=== PATIENT | male | born 1955 | race Caucasian/White ===

== ENCOUNTER 2017-12-08 05:31 | Inpatient (IN) | payer OTHER ==
[2017-11-26 08:38] LABS: HEMATOCRIT 43.1 % (42.0-52.0); HEMOGLOBIN 15.1 gm/dL (14.0-18.0); MCH 33.6 pg (26.0-34.0); RBC 4.49 mil/uL (4.50-6.00); RDW 12.9 % (10.5-14.5); WBC 8.1 thou/uL (4.0-11.0)
[2017-11-26 08:42] LABS: URINE BILIRUBIN NEGATIVE (Negative); URINE BLOOD NEGATIVE (Negative); URINE CLARITY CLEAR; URINE COLOR YELLOW; URINE GLUCOSE-RANDOM* NEGATIVE (Negative); URINE KETONES TRACE (Negative); URINE LEUKOCYTES-REFLEX NEGATIVE (Negative); URINE NITRITE-REFLEX NEGATIVE (Negative); URINE PROTEIN (DIPSTICK) NEGATIVE (Negative); URINE UROBILINOGEN 0.2 E.U./dl (0.2-1.0)
[2017-11-26 08:45] LABS: INR 1.1; PROTIME 10.4 Seconds (9.3-11.4)
[2017-11-26 08:45] LABS: ALBUMIN 4.1 g/dL (3.4-5.0); CALCIUM 10.4 mg/dL (8.5-10.1); CREATININE 0.9 mg/dL (0.7-1.3); POTASSIUM 4.2 mmol/L (3.5-5.1)
[~2017-12-08] VITALS: Ht 177.8 cm; Wt 136.1 kg
--- NOTE | ~2017-12-08 | D ---
[facility] [place] [address] DISCHARGE SUMMARY Name: KRISTY MENCHACA Cinthia Room #: 402-P [facility] IN ..#: [id number] Admission: 12/08/17 Attend Phys: Inocente Vásquez MD Discharge: 12/10/17 Date of : 59 Report #: [id number] THIS REPORT FOR: //name// CC: Inocente Bradley DATE OF SERVICE: 12/10/2017 FINAL DIAGNOSIS: End-stage degenerative arthritis, left hip. OPERATIONS AND PROCEDURES: Left total hip arthroplasty. HISTORY OF PRESENT ILLNESS: This stocky, but otherwise well appearing 62-year-old gentleman presents with progressive left hip pain. Clinical and radiographic findings revealed severe degenerative arthritis. He is having difficulty with ambulation and independent activity. He has elected to go ahead with left total hip arthroplasty. HOSPITAL COURSE: The patient was admitted and taken to the operating room on 12/08. He underwent left total hip arthroplasty, which he tolerated well. Postoperatively, his course was largely unremarkable. His Hemovac drain was removed at the first postoperative day. He was able to advance from IV analgesics to oral analgesics. He was able to resume a regular diet. He resumed his preoperative routine medications and was able to manage on oral Percocet for pain control. He was also started on Xarelto for anticoagulation prophylaxis. He made good progress with therapy advancing to independent ambulation and stairs. He seems to be safe and independent and ready for discharge on [address] 10[address]. He is instructed to continue a gentle moderate activity at home. I have asked him to call me should there be any problems or questions. We will plan to communicate next week and then see him in the office the following week for followup and suture removal. DISCHARGE MEDICATIONS: Include verapamil 180 mg 2 tablets daily, Colace 100 mg b.i.d., Lipitor 10 mg daily, lisinopril/hydrochlorothiazide 20/12.5 one daily, oxycodone 10 mg q.4 hours p.r.n. for pain, and Xarelto 10 mg daily. He will call me if there are any problems or questions and we will otherwise visit again in 2 weeks. <ELECTRONICALLY SIGNED> By: Inocente Vásquez MD 12/11/17 [id number] Inocente Vásquez MD /nt
--- NOTE | ~2017-12-08 | O ---
[facility] [place] [address] OPERATIVE REPORT Name: KRISTY MENCHACA Room #: 402-P [facility] IN M.R.#: [id number] Admission: 12/08/17 Attend Phys: Inocente Vásquez MD Discharge: Date of : 59 Report #: [id number] THIS REPORT FOR: //name// CC: Inocente Bradley DATE OF SERVICE: 12/08/2017 PREOPERATIVE DIAGNOSIS: End-stage degenerative arthritis, left hip. POSTOPERATIVE DIAGNOSIS: End-stage degenerative arthritis, left hip. PROCEDURE: Left total hip arthroplasty. SURGEON: Inocente Vásquez MD INDICATIONS: This 62-year-old gentleman presents with progressive left hip pain. He has had similar problems on the right hip, benefited with right total hip arthroplasty in the past. Now, he has limited range of motion and significant crepitus and pain involving the left hip. We have elected to go ahead with left total hip arthroplasty. DESCRIPTION OF PROCEDURE: The patient was taken to the operating room where he was placed under general anesthesia. Prophylactic intravenous antibiotics were administered. He was turned to the right lateral decubitus position. The right hip and thigh were meticulously prepped and draped. A slightly curving posterolateral skin incision was made centered over the greater trochanter. This was carried through fascia exposing the posterior aspect of the hip joint. The short external rotators and capsule were taken down and tagged with several #1 Tevdek sutures. The hip was dislocated and marked degenerative change on both the acetabulum and femoral head were noted. A femoral neck osteotomy was performed and the head was removed. The femoral canal was then opened using reamers and hand broaches. The Witt and Nephew hip system was utilized. The size 14 Synergy porous stem seemed to fit most appropriately. The calcar was trimmed down to an appropriate level. The trial stem was removed and attention was directed to the acetabulum. The acetabulum was sequentially reamed and seemed to be best suited for a size 56 fenestrated cup. The StikTite coated shell was selected using the size 56 mm outside diameter size. This was impacted into the prepared acetabulum, positioning this in alignment with his true acetabulum and about 45 degrees off of vertical and about 20 degrees of anteversion. It seated nicely and appeared to be secure. In addition, 2 cancellous screws were placed through the upper aspect of the shell engaging periacetabular bone with good purchase. This resulted in excellent overall stability. The polyethylene liner was then inserted using the 40 mm liner with a 20-degree elevated rim, which was placed at about the 10 o'clock posterior position. This was snapped into position and seated nicely and appeared to be [address] [address] OPERATIVE REPORT Name: KRISTY MENCHACA Room #: 402-P [facility] IN M.R.#: [id number] Admission: 12/08/17 Attend Phys: Inocente Vásquez MD Discharge: Date of : 59 Report #: [id number] secure. The size 14 femoral stem was then reinserted and a trial reduction was performed. The hip seemed to be best suited for a +0 neck length and a 40 mm head size. This resulted in satisfactory leg length, alignment and stability. The trial stem was removed and the permanent Witt and Nephew size 14 Synergy porous high offset femoral component was then applied. This was inserted into the canal and positioned about 20 degrees of anteversion. It seated nicely and appeared to be secure. A +0 neck length and a 40 mm head size was selected. This was impacted onto the Peng taper using a cobalt chrome style head. This seated nicely and appeared to be secure. The hip was reduced. Alignment, range of motion, stability and leg length appeared to be satisfactory. The wound was then copiously irrigated. Good hemostasis was established. The capsule and short external rotators were repaired back to bone using the #1 Tevdek sutures passed through small drill holes in the posterior aspect of greater trochanter. This added to overall hip stability. A single Hemovac was then left in the wound exiting through a separate stab incision. The fascia was then closed with multiple #1 Vicryl sutures. The subcutaneous tissues were closed with 0 Monocryl. The skin was closed with skin mario. A sterile dressing was applied. The patient was awakened and returned to recovery room in good condition. <ELECTRONICALLY SIGNED> By: Inocente Vásquez MD 12/09/17 0810 [id number] Inocente Vásquez MD /nt
--- NOTE | ~2017-12-08 | EKG ---
[place] [address] [facility] [place] [address] ELECTROCARDIOGRAM REPORT Name: PITO MENCHACAMONALISA Vicente Room #: PRE IN [facility]#: [id number] Admission: Attend Phys: Inocente Vásquez MD Discharge: Date of : 59 Report #: [id number] THIS REPORT FOR: //name// [facility] Test Date: 2017-11-26 Test Time: 08:29:10 Pat Name: KRISTY MENCHACA Department: Room: Gender: Moving Consultant: sarbjit : 1955 Requested By: Inocente Vásquez Order Number: [id number] MD: Nabeel Alatorre Measurements Intervals [place] Rate: 73 P: 49 NH: 203 QRS: 1 QRSD: 92 T: 3 QT: 392 QTc: 432 Interpretive Statements Sinus rhythm Low voltage, precordial leads Abnormal R-wave progression, early transition Compared to ECG 05/14/2013 23:46:19 Low QRS voltage now present Ventricular premature complex(es) no longer present Electronically Signed On 11-28-2017 7:42:06 [employer] by Nabeel Alatorre [email or web address] <ELECTRONICALLY SIGNED> By: Nabeel Alatorre MD, [facility] 11/28/17 0742 8 Nabeel Alatorre MD, [facility] /EPI
[~2017-12-08 05:31] MED LIST: ADVIL100 M2 PO; BENTYL 10 MG CA10 M1 PO; CENTRUM SILVER1 EAC4 PO; COLACE100 MG PO; COUMADIN 2 MG TA2 M1 PO; IBUPROFEN 200200 M1 PO; IBUPROFEN 600600 M1 PO; LIPITOR10 MG PO; LISINOPRIL10 MG PO; LORCET PLUS 7.1 EACH PO; LOVENOX40 MG/0.4 SQ; NORCO 5-325 TA1 EACH PO; NUCYNTA ER150 MG PO; PERCOCET 10-321 EACH PO; SIMVASTATIN20 MG PO; TYLENOL325 MG PO; ULORIC40 MG PO; VERAPAMIL ER180 M1 PO; ZESTORETIC 20-1 EAC3 PO
[2017-12-08 06:51] VITALS: BP 151/82
[2017-12-08 11:30] VITALS: BP 128/57
[2017-12-08 16:00] VITALS: BP 132/65
[2017-12-08 20:21] VITALS: BP 143/67
[2017-12-09 04:54] VITALS: BP 137/78
[2017-12-09 06:48] LABS: ABSOLUTE NEUTROPHILS 9.7 thou/uL (1.4-8.2); BASOPHILS 0.2 % (0.0-2.0); HEMATOCRIT 35.4 % (42.0-52.0); HEMOGLOBIN 12.1 gm/dL (14.0-18.0); LYMPHOCYTES 6.2 % (24.0-44.0); MCH 33.5 pg (26.0-34.0); MCHC 34.2 g/dL (28.0-37.0); MCV 97.9 fL (80.0-100.0); PLATELET COUNT 196 thou/uL (150-400); POLYS 84.6 % (36.0-66.0); RBC 3.62 mil/uL (4.50-6.00); RDW 13.4 % (10.5-14.5); WBC 11.5 thou/uL (4.0-11.0)
[2017-12-09 06:55] LABS: CALCIUM 8.6 mg/dL (8.5-10.1); MAGNESIUM 1.7 mg/dL (1.8-2.4); POTASSIUM 3.9 mmol/L (3.5-5.1)
[2017-12-09 08:01] VITALS: BP 137/65
[2017-12-09 19:02] VITALS: BP 129/66
[2017-12-10 04:00] VITALS: BP 141/80
[2017-12-10 06:40] LABS: HEMATOCRIT 32.5 % (42.0-52.0); HEMOGLOBIN 11.4 gm/dL (14.0-18.0); RBC 3.35 mil/uL (4.50-6.00); RDW 13.6 % (10.5-14.5); WBC 9.3 thou/uL (4.0-11.0)
[2017-12-10 08:00] VITALS: BP 144/74
[2017-12-10 11:11] VITALS: BP 144/74
[2017-12-10 13:29] VITALS: BP 144/74
[2017-12-10 13:30] VITALS: BP 144/74
== END 2017-12-10 16:20 | disposition home or self-care (01) | DRG 470 ==
LOC: PRE 05:31 → 4N 05:38 → TBA 05:38 → 4N 11:26 → PRE 11:45 → ENTRNSPT 12-10 14:07 → EDTRNSPTSTS 12-10 14:13 → 4N 12-10 16:20
PROVIDERS: Nurse Practitioner; Orthopaedic Surgery
PROC: 0SRB02Z Replacement of Left Hip Joint with Metal on Polyethylene Synthetic Substitute, Open Approach (ICD-10-PCS; principal; 2017-12-08)
DX: M16.12 Unilateral primary osteoarthritis, left hip (principal); I10 Essential (primary) hypertension; E78.5 Hyperlipidemia, unspecified; Z96.641 Presence of right artificial hip joint; E83.42 Hypomagnesemia
CPT/HCPCS: 10790; 50010; 50101; 50382; 50414; 51412; 51771; 53000; 53367; 56521; 56525; 56527; 62110; 62900; 70005